=== PATIENT | male | born 1950 | race Caucasian/White ===

== ENCOUNTER → 2020-12-26 08:51 | Outpatient (CLI) | payer OTHER, SELFPAY ==
--- NOTE | 2020-12-26 | DI.RAD.S_ITS ---
PROCEDURE: XR CHEST 2V INDICATIONS: BURNING SENSATION IN LUNGS W/ACTIVITY TECHNIQUE: 2 views of the chest were acquired. COMPARISON: None. FINDINGS: Surgical changes and devices: None. Lungs and pleura: Lungs are clear. No pleural effusions or pneumothorax. Mediastinum: Mediastinal contours are normal. Heart size is normal. Bones and chest wall: No suspicious bony abnormalities. Soft tissues appear unremarkable. IMPRESSION: No acute cardiopulmonary disease. Dictated by: Donal Potts RRA Interpreted: Alfonso Rollins MD on 12/26/2020 at 9:17 Transcribed by: EBONY on 12/26/2020 at 9:18 Approved by: Edilberto Rollins M.D. on 12/30/2020 at 11:23
== END ==
PROVIDERS: PCP Internal Medicine; Referring Provider Internal Medicine; Visit Provider Internal Medicine
DX: R06.9 Unspecified abnormalities of breathing (principal)
CPT/HCPCS: 71046

== ENCOUNTER → 2022-01-19 08:00 | Outpatient (CLI) | payer MEDICARE, SELFPAY ==
--- NOTE | 2022-01-19 | DI.RAD.S_ITS ---
PROCEDURE: XR HIP W PEL IF DONE LT 2V INDICATIONS: Other chronic pain TECHNIQUE: AP pelvis with lateral view(s) of the left hip(s). COMPARISON: None. FINDINGS: Bones: No fractures or dislocations. Mild to moderate bilateral hip joint osteoarthritic changes are seen with joint space narrowing and subchondral sclerosis. No evidence of avascular necrosis of femoral head. Pelvic ring appears intact. No suspicious bony lesions. Soft tissues: The visualized bowel gas pattern is normal. No suspicious soft tissue calcifications. IMPRESSION: Right worse than left bilateral hip joint osteoarthritis. No hip fracture or dislocation. No evidence of avascular necrosis. Dictated by: Zeeshan Lizarraga M.D. on 01/19/2022 at 10:01 Approved by: Zeeshan Lizarraga M.D. on 01/19/2022 at 10:01
== END ==
PROVIDERS: PCP Internal Medicine; Referring Provider Internal Medicine; Visit Provider Internal Medicine
DX: M25.552 Pain in left hip (principal); G89.29 Other chronic pain; M16.0 Bilateral primary osteoarthritis of hip
CPT/HCPCS: 73502

== ENCOUNTER → 2023-02-22 07:52 | Outpatient (CLI) | payer MEDICARE, SELFPAY ==
--- NOTE | 2023-02-22 07:53 | DI.ECHO.S_ITS ---
[facility]+ [facility] +---------+ : : [address] : : : : [id number] : : : : Phone: [phone]+ Echocardiogram Report + + :Name: DORCAS GUARDADO Study Date: 02/22/2023 Height: 67 in : :[facility] ReadingLocation: Weight: 182 lb : : Gender: Male BSA: 1.9 m2 : :: 1950 Age: 72 yrs BP: 158/84 mmHg: :Reason For Study: SHORTNESS OF BREATH : :Ordering Physician: ANNETTE, : :YASMANI Performed By: Margarita Cuadra : :Referring: YASMANI BRYANT : + + Interpretation Summary The left ventricle is normal in size. Left ventricular systolic function appears normal without focal wall motion abnormalities. The ejection fraction is estimated to be 55-60%. Diastolic parameters suggest probable normal left ventricular diastolic function and normal filling pressures. The right ventricle is normal in size and function. The left atrial size is normal. There is mild aortic regurgitation. The aortic root is normal size. Procedure: A two-dimensional transthoracic echocardiogram with color flow and Doppler was performed. The study quality was technically adequate. There is no prior echocardiogram noted for this patient. The patient was in sinus rhythm with heart rates between 59-65 bpm during the exam. Left Ventricle: The left ventricle is normal in size. There is normal left ventricular wall thickness. Left ventricular systolic function appears normal without focal wall motion abnormalities. The ejection fraction is estimated to be 55-60%. Diastolic parameters suggest probable normal left ventricular diastolic function and normal filling pressures. Right Ventricle: The right ventricle is normal in size and function. Atria: The left atrial size is normal. Right atrial size is normal. There is no Doppler evidence for an interatrial shunt. Mitral Valve: The mitral valve is normal in structure and function. There is trace mitral regurgitation. Aortic Valve: The aortic valve is trileaflet. The aortic valve opens well. There is no aortic valve stenosis. There is mild aortic regurgitation. Tricuspid Valve: The tricuspid valve is normal in structure and function. There is trace tricuspid regurgitation. Pulmonic Valve: The pulmonic valve leaflets are thin and pliable; valve motion is normal. There is mild pulmonic regurgitation. Great Vessels: The aortic root is normal size. The dimensions of the ascending aorta are normal. The IVC is of normal diameter and collapses greater than 50% with a sniff. This suggests a low right atrial pressure of 3 mm Hg. Pericardium/ Pleura There is no pericardial effusion. There is no pleural effusion. MMode/2D Measurements & Calculations LVIDd: 4.8 cm LVOT diam: 2.1 cm LVIDs: 3.3 cm Ao root diam: 3.1 cm FS: 31.2 % asc Aorta Diam: 3.0 cm EPSS: 0.63 cm Ao Arch Diam (Prox Trans): 2.7 cm IVSd: 0.98 cm LVPWd: 1.1 cm LV drake. diameter/BSA (cm/m^2): 2.5 LV sys. diameter/BSA (cm/m^2): 1.7 LA A2 area: 17.1 cm2 RA long axis: 4.3 cm LA A4 area: 15.1 cm2 RA area: 14.3 cm2 LA length (vol): 5.4 cm RA vol: 40.3 ml LA vol: 40.7 ml RA : 20.7 ml/m2 LA vol index: 21.0 ml/m2 IVC diam: 1.6 cm RVD1 (basal): 2.8 cm RVD2 (mid): 2.4 cm TAPSE: 2.1 cm Doppler Measurements & Calculations Ao V2 max: 110.2 cm/sec LVOT Max Marko: 77.0 cm/sec Ao V2 mean: 81.8 cm/sec LV V1 max P.4 mmHg Ao max P.9 mmHg LV V1 VTI: 18.9 cm Ao mean P.9 mmHg HE(I,D): 2.4 cm2 Ao V2 VTI: 26.8 cm HE(V,D): 2.4 cm2 sev ratio: 0.71 HE indexed to BSA (cm^2/m^2): 1.2 AI P1/2t: 673.5 msec AI dec slope: 175.3 cm/sec2 MV E max marko: 77.9 cm/sec TR max marko: 232.3 cm/sec MV A max marko: 70.5 cm/sec TR max P.6 mmHg MV E/A: 1.1 PA V2 max: 88.3 cm/sec Med Peak E' Marko: 7.8 cm/sec PA V2 mean: 63.1 cm/sec E/E' med: 10.0 PA mean P.8 mmHg Lat Peak E' Marko: 9.0 cm/sec PA pr(Accel): 20.8 mmHg E/E' lat: 8.7 E/e' average: 9.3 MV dec time: 0.16 sec SV(LVOT): 64.5 ml Reading Physician:11:42 AM
== END ==
PROVIDERS: PCP Physician Assistant; Referring Provider Internal Medicine Critical Care Medicine; Visit Provider Internal Medicine Critical Care Medicine
DX: I35.1 Nonrheumatic aortic (valve) insufficiency (principal); I37.1 Nonrheumatic pulmonary valve insufficiency; R06.09 Other forms of dyspnea
CPT/HCPCS: 93306

== ENCOUNTER → 2023-02-24 09:34 | Outpatient (CLI) | payer OTHER, SELFPAY | PROVIDERS: PCP Physician Assistant; Referring Provider Internal Medicine Critical Care Medicine; Visit Provider Internal Medicine Critical Care Medicine | DX: R09.89 Other specified symptoms and signs involving the circulatory and respiratory systems (principal); J98.8 Other specified respiratory disorders | CPT/HCPCS: 94060; 94726; 94729 ==